=== PATIENT | female | born 1975 | race Caucasian/White ===

== ENCOUNTER 2019-08-18 20:03 | Emergency (ER) | payer SELFPAY ==
[~2019-08-18] VITALS: Ht 134.6 cm; Wt 70.0 kg
[2019-08-19 04:08] VITALS: BP 142/90
[2019-08-19] MEDS ORDERED: KETOROLAC 30MG/ML VIAL IM ONE (04:15)
== END 2019-08-19 04:12 | disposition home or self-care (01) ==
LOC: ER 20:03
DX: S09.8XXA Other specified injuries of head, initial encounter (principal); S10.93XA Contusion of unspecified part of neck, initial encounter; V43.62XA Car passenger injured in collision with other type car in traffic accident, initial encounter; Y93.89 Activity, other specified; Y92.488 Other paved roadways as the place of occurrence of the external cause
CPT/HCPCS: 70450; 71045; 72125; 81025; 96372; 99285; J1885